=== PATIENT | female | born 1960 | race African-American/Black ===

== ENCOUNTER 2017-05-22 17:11 | Inpatient (IN) | payer MEDICARE ==
[2017-05-22 18:57] LABS: Hemoglobin 7.5 g/dL (12.0-16.0); Mean Corpuscular HGB CONC 29.4 g/dL (32.0-36.0); Mean Corpuscular Hemoglobin 26.8 pg (27.0-31.0); Mean Corpuscular Volume 91.3 fl (81.0-99.0); Mean Platelet Volume 8.6 fL (7.4-10.4); Platelet Count 255 thou/uL (130-400); RBC Distribution Width 16.2 % (11.5-14.5); Red Blood Cell (RBC) Count 2.79 mill/uL (4.20-5.40); White Blood Cell (WBC) Count 9.6 thou/uL (4.8-10.8)
[2017-05-22 19:17] LABS: ALT (SGPT) 14 U/L (8-55); AST (SGOT) 16 U/L (5-34); Albumin 3.5 g/dL (3.5-5.0); Alkaline Phosphatase 86 U/L (40-150); Anion Gap 16 mmol/L (10-20); BUN (Urea Nitrogen) 62 mg/dL (9.8-20.1); Bilirubin, Total 0.5 mg/dL (0.2-1.2); CK (CPK) 151 U/L (29-168); Calc. Creatinine Clearance 0 mL/min (70-130); Calcium 9.3 mg/dL (7.8-10.44); Carbon Dioxide 21 mmol/L (22-29); Chloride 112 mmol/L (98-107); Estimated GFR-MDRD 6; Globulin 3.5 g/dL (2.4-3.5); Glucose 115 mg/dL (70-105); Potassium 4.3 mmol/L (3.5-5.1); Sodium 145 mmol/L (136-145)
[2017-05-22 19:20] LABS: Anisocytosis SLIGHT = 6-15 cells (100X) (0-5/hpf); Eosinophils 6 % (0-10); Hypochromia SLIGHT = 6-15 cells (100X) (0-5/hpf); Lymphocytes 28 % (21-51); MDiff Complete? YES; Monocytes 9 % (0-10); Neutrophil 54 % (42-75); Nucleated RBC 1 % (0); PLT Morphology Comment Appears Adequate; Polychromasia MODERATE = 3-4 cells (100X) (0-2/hpf); Reactive Lymphocytes 2 % (0-10); Target Cells SLIGHT = 2-5 cells (100X) (0-1/hpf)
[2017-05-22 19:22] LABS: CKMB 2.1 ng/mL (0-6.6); Troponin I 0.054 ng/mL (< 0.028)
--- NOTE | 2017-05-22 19:27 | RAD ---
AP VIEW CHEST: INDICATIONS: History of peritoneal dialysis. COMPARISON: Prior exam dated 06/14/2012. FINDINGS: There is stable moderate cardiomegaly. There is moderate pulmonary vascular congestion that has deve loped. The costophrenic angles are excluded. No pneumothorax is evident. No acute osseous abnormal ity is evident. IMPRESSION: 1. Cardiomegaly with pulmonary vascular congestion that may reflect volume overload of congestive he art failure. 2. Some limitations to the exam, as above. POS: NISHANT
[2017-05-22] MEDS ORDERED: HYDROcodone/Acetaminophen 5/325 mg Tablet PO PRN (23:23)
[2017-05-22] MEDS ORDERED: Ondansetron ODT 4 MG TAB PO PRN (23:23)
[2017-05-22] MEDS ORDERED: Acetaminophen 325 MG TAB PO PRN (23:23)
[2017-05-22] MEDS ORDERED: Dextrose 5% in Water 1,000 ML IV PRN (23:23)
[2017-05-22] MEDS ORDERED: Dextrose 50% Abboject 50 ML SYRINGE SLOW IVP PRN (23:23)
[2017-05-22] MEDS ORDERED: hydrALAZINE 25 MG TAB PO SCH (23:30)
[2017-05-22] MEDS ORDERED: cloNIDine 0.2 MG TAB PO SCH (23:30)
[2017-05-22 23:56] LABS: CKMB 2.1 ng/mL (0-6.6); Troponin I 0.055 ng/mL (< 0.028)
--- NOTE | 2017-05-23 02:36 | HP ---
DATE OF ADMISSION: 05/22/2017 TIME OF SERVICE: 2315 hours PRIMARY CARE PHYSICIAN: Pedro Jeffery MD PRIMARY PITCH GATHERER: Dr. Louis covering since Dr. Murcia has not come here. CHIEF COMPLAINT: Need to start dialysis. HISTORY OF PRESENT ILLNESS: Ms. Mazariegos is a 56-year-old obese -[place] female with history of chronic kidney disease, stage 5, currently learning how to start peritoneal dialysis as an outpat ient. She is only undergone treatments or instructions of an hour to hour and a half. She had a peritoneal dialysis catheter placed about a month ago in preparation. She also has a history of CHF, unsure if it is systolic or diastolic; cerebrovascular disease, status post CVA or TIA couple of years ago with resultant memory issues; hypertension; diabetes, and she ju st informed me hepatitis, she is unsure if it is B or C. She states she got of her blood transfusion when she was young. She is followed at [facility] for her chronic kidney disease with Dr. Murcia, and came to the e mergency department today for feeling short of breath. She was told that she was instructed to come to the emergency department by her surface grinder to start peritoneal dialysis. She complains of short ness of breath and diffuse edema and anasarca. No chest pain, no nausea, vomiting or diarrhea, const ipation, no cough or sputum production, no fevers or chills. She denies any GI bleeding above or bel ow. She was seen by Dr. Louis done in the emergency department, he has written a peritoneal dialysis or ders and we are currently waiting for the nurse to bring supplies. On arrival to the floor, she has been hypertensive. Blood pressure has been in the 200+ range. The patient initially told the nurse, she did not know her medications, but was able to tell me her hydra lazine dosing and her clonidine schedule and unsure if she takes 0.1 or 0.2 mg with each dose of clon idine. PAST MEDICAL HISTORY: 1. Chronic kidney disease 5, now end-stage renal disease requiring peritoneal dialysis. 2. Congestive heart failure, suspect diastolic component due to her severe obesity. Also, suspect c or-pulmonale, obstructive sleep apnea/obesity hypoventilation syndrome with pulmonary hypertension. 3. Cerebrovascular disease, status post CVA/TIA. 4. Hypertension. 5. Diabetes mellitus type 2, on Glucophage, unknown dose. 6. Hepatitis B or C. PAST SURGICAL HISTORY: 1. Hysterectomy in the , partial. 2. Bilateral cataracts. States she had been done several times and cannot remember the last one was . 3. Tonsillectomy in 1990. 4. Peritoneal dialysis catheter placement about 1 month ago. HOME MEDICATIONS: 1. Glucophage once a day, unsure of the dose. 2. Hydralazine 100 mg p.o. t.i.d. 3. Clonidine 0.1 mg or 0.2 mg p.o. b.i.d. ALLERGIES: CIPRO causes throat to swell. SOCIAL HISTORY: Negative for habits x3. FAMILY HISTORY: Negative for clotting or bleeding disorder. No immune dysfunction. She has heart d isease, diabetes, high blood pressure, and kidney problems in her family. REVIEW OF SYSTEMS: A 10-point review of systems was performed, negative for all other systems except as stated as per HPI. PHYSICAL EXAMINATION: VITAL SIGNS: Temperature is 97.5, pulse 89, blood pressure 208/74, respiratory rate 22, O2 sat 95% o n room air. GENERAL: She is awake. She is alert. She is oriented x3. She is a middle-aged -[place] fe male who is severely obese. She appears to be in no acute distress. She is sitting up in bed almost 90 degrees and breathing comfortably. HEENT: Normocephalic and atraumatic. Pupils are equal and reactive to light bilaterally. Mucous me mbranes are moist. There are no visible lesions or thrush. NECK: She has about 7 cm of JVD present. LUNGS: Clear to auscultation anteriorly; however, posterior in the bilateral bases, there are some w et crackles present. These do not clear with deep inspiration. She has no wheezes, no rhonchi. No prolonged expiratory phase. CARDIOVASCULAR: She has a normal S1 and S2. Holosystolic murmur best heard at the apex. She has go t normal rate and irregular rhythm. ABDOMEN: Severely obese. Peritoneal dialysis catheter is clean, dry, and intact without any evidenc e of erythema. She had normoactive bowel sounds present in all 4 quadrants. She has no rebound, rig idity, or guarding. There are no peritoneal signs. EXTREMITIES: No cyanosis or clubbing. She has got 2+ edema to about the level of her belly button. SKIN: Otherwise, warm, moist, and well perfused without any other rashes or lesions. MUSCULOSKELETAL: Normal to inspection. She has no inflammation. No palpable joint effusions, thoug h her body habitus makes it difficult. NEUROLOGIC: Cranial nerves II through XII are grossly intact. She has a 5/5 strength in all 4 of hi s extremities. She has a normal speech pattern. No focal deficits. LABORATORY AND DIAGNOSTIC DATA: CMP is fairly normal except for a BUN of 62, creatinine of 8.13. He r calcium is 9.3, potassium 4.3, and bicarbonate 21. Liver functions are completely normal. White b lood cell count was 9.6 with a normal differential, hemoglobin 7.5, hematocrit 25.5 and platelets 255 ,000. Her chest x-ray showed cardiomegaly and pulmonary vascular congestion/CHF. ASSESSMENT AND PLAN: 1. End-stage renal disease requiring dialysis now. Peritoneal dialysis is to start this evening for full treatment. Dr. Louis is following. 2. Acute on chronic congestive heart failure. Unsure if this is systolic or diastolic. Certainly, it is due to fluid overload from her chronic kidney failure. We will get a 2-D echocardiogram to bet ter assess her cardiac function. 3. Severe obesity, likely has sleep apnea and/or obesity hypoventilation syndrome. We will follow u p on the echocardiogram to assess her pulmonary artery pressures. 4. Cerebrovascular disease, status post cerebrovascular accident. We will keep her blood pressure c ontrol. Her will bring her list of medicines in the morning. We will get this restarted. 5. Diabetes mellitus type 2, on Glucophage. Not on insulin. We will hold her Glucophage for now. We will use sliding scale insulin, diabetic diet, and q.i.d. a.c. and at bedtime Accu-Cheks. 6. Hypertension, on hydralazine and clonidine. We will start her back on her regular hydralazine do sing 100 mg p.o. t.i.d., and clonidine. I will aim on the higher side at 0.2 b.i.d. We will give p. r.n. labetalol as needed. 7. Viral hepatitis: Unknown type. We will check hepatitis B surface antigen, surface antibody, cor e antibody and we will also check hepatitis C, total antibody.
[2017-05-23] MEDS: HumaLOG 300 UNITS/3 ML VIAL SC PRN ×3 (05:50→22:17)
[2017-05-23 07:31] LABS: #Basophils 0.1 thou/uL (0.0-0.2); #Eosinphils 0.5 thou/uL (0.0-0.7); #Lymphocytes 2.3 thou/uL (1.20-3.40); #Monocytes 1.1 thou/uL (0.11-0.59); #Neutrophils 4.3 thou/uL (1.40-6.50); %Basophils 0.7 % (0.0-1.0); %Lymphocytes 28.3 % (21.0-51.0); %Monocytes 12.8 % (0.0-10.0); %Neutrophils 52.2 % (42.0-75.0); Hemoglobin 7.2 g/dL (12.0-16.0); Mean Corpuscular HGB CONC 30.2 g/dL (32.0-36.0); Mean Corpuscular Hemoglobin 27.3 pg (27.0-31.0); Mean Corpuscular Volume 90.4 fl (81.0-99.0); Mean Platelet Volume 8.6 fL (7.4-10.4); Platelet Count 220 thou/uL (130-400); RBC Distribution Width 15.9 % (11.5-14.5); Red Blood Cell (RBC) Count 2.64 mill/uL (4.20-5.40); White Blood Cell (WBC) Count 8.2 thou/uL (4.8-10.8)
[2017-05-23 07:48] LABS: Hemoglobin A1c 7.5 % (4.0-6.0)
[2017-05-23 07:53] LABS: Albumin 3.2 g/dL (3.5-5.0); Anion Gap 15 mmol/L (10-20); BUN (Urea Nitrogen) 63 mg/dL (9.8-20.1); BUN/Creatinine Ratio 7.87; Calc. Creatinine Clearance 11 mL/min (70-130); Calcium 9.2 mg/dL (7.8-10.44); Carbon Dioxide 21 mmol/L (22-29); Chloride 114 mmol/L (98-107); Estimated GFR-MDRD 6; Glucose 98 mg/dL (70-105); Phosphorus 5.4 mg/dL (2.3-4.7); Sodium 146 mmol/L (136-145)
[2017-05-23 07:56] LABS: CKMB 1.7 ng/mL (0-6.6); Troponin I 0.054 ng/mL (< 0.028)
[2017-05-23] MEDS: Famotidine 20 MG TAB PO SCH (08:43)
[2017-05-23] MEDS: hydrALAZINE 25 MG TAB PO SCH ×3 (08:43→22:10)
[2017-05-23] MEDS: cloNIDine 0.2 MG TAB PO SCH ×2 (08:44→22:10)
[2017-05-23] MEDS: Docusate 100 MG CAP PO SCH ×2 (10:23→22:10)
[2017-05-23 11:36] LABS: Hep B Core Total Ab Non-Reactive (NonReactive); Hep B Core Total Index 0.08 S/CO (0-0.79)
[2017-05-23 11:37] LABS: HBSAB Concentration 0.16 mIU/mL; HBSAg Index 0.19 S/CO (0-0.99); Hep B Surf AB Non-Reactive (NonReactive); Hep B Surf Ag Non-Reactive S/CO (NonReactive)
--- NOTE | 2017-05-23 12:05 | RAD ---
RADIOGRAPH ABDOMEN 2 VIEWS: DATE: 05/23/17. TIME: 10:27 a.m. HISTORY: A 56-year-old female with generalized abdominal pain. COMPARISON: None. FINDINGS: There is a catheter approaching from the left side of the pelvis, with distal portions coiled in the mid pelvis. There is gas throughout nondilated colon, with a few air fluid levels in the right colon . There is lack of small bowel gas. No evidence of pneumoperitoneum. IMPRESSION: 1. Difficult to evaluate the small intestine because of lack of small bowel gas. 2. Peritoneal dialysis catheter overlying the pelvis. POS: JODY
[2017-05-23 12:19] LABS: Hep C IgG Ab Reflex HepC Qnt (NonReactive); Hep C Index 2.64 S/CO (0-0.79)
--- NOTE | 2017-05-23 14:04 | PDOC.PN ---
- Subjective Encounter Start Date: 05/23/17 Encounter Start Time: 10:20 Subjective: has sob, abd pain colicky+ -: just started on PD now - Objective Resuscitation Status: Resuscitation Status FULL:Full Resuscitation MAR Reviewed: Yes Vital Signs & Weight: Vital Signs (12 hours) Temp Pulse Resp BP BP Pulse Ox 05/23/17 12:53 98.0 F 86 18 136/89 05/23/17 09:23 81 129/59 L 05/23/17 08:44 168/72 H 05/23/17 08:43 76 168/72 H 05/23/17 08:00 98.1 F 81 20 168/72 H 96 05/23/17 03:36 98.0 F 81 18 160/70 H 95 I&O: 05/22/17 05/23/17 05/24/17 06:59 06:59 06:59 Intake Total 580 Balance 580 Result Diagrams: 05/23/17 07:17 05/23/17 07:17 Additional Labs: Accuchecks 05/23/17 05/23/17 12:21 05:42 POC Glucose 135 H 165 H Phys Exam - Physical Examination HEENT: PERRLA, moist MMs Neck: supple jvd+ Respiratory: no wheezing, no rhonchi Cardiovascular: RRR, no significant murmur Gastrointestinal: soft, no distention, positive bowel sounds PD cath+ Musculoskeletal: no edema, pulses present Neurological: non-focal, moves all 4 limbs Psychiatric: A&O x 3 Dx/Plan (1) Volume overload Code(s): E87.70 - FLUID OVERLOAD, UNSPECIFIED Status: Acute (2) ESRD on peritoneal dialysis Code(s): N18.6 - END STAGE RENAL DISEASE; Z99.2 - DEPENDENCE ON RENAL DIALYSIS Status: Acute (3) DM type 2 (diabetes mellitus, type 2) Status: Chronic Qualifiers: Diabetes mellitus complication status: with kidney complications Diabetes mellitus complication detail: with chronic kidney disease Diabetes mellitus bellhop insulin use: without senior care use Chronic kidney disease stage: stage 5, not on chronic dialysis Qualified Code(s): E11.22 - Type 2 diabetes mellitus with diabetic chronic kidney disease; N18.5 - Chronic kidney disease, stage 5; N18.5 - Chronic kidney disease, stage 5; N18.5 - Chronic kidney disease , stage 5; N18.5 - Chronic kidney disease, stage 5 (4) HTN (hypertension) Code(s): I10 - ESSENTIAL (PRIMARY) HYPERTENSION Status: Chronic Qualifiers: Hypertension type: essential hypertension Qualified Code(s): I10 - Essential (primary) hypertension (5) Hepatitis C Code(s): B19.20 - UNSPECIFIED VIRAL HEPATITIS C WITHOUT HEPATIC COMA Status: Chronic Qualifiers: Viral hepatitis chronicity: chronic Hepatic coma status: without hepatic coma Qualified Code(s): B18.2 - Chronic viral hepatitis C (6) H/O: CVA (cerebrovascular accident) Code(s): Z86.73 - PRSNL HX OF TIA (TIA), AND CEREB INFRC W/O RESID DEFICITS Status: Chronic (7) Obesity Code(s): E66.9 - OBESITY, UNSPECIFIED Status: Chronic - Plan if PD is not working, she needs to start on HD -: esrd per nephrology advice -: she seems to have abd pain with PD cath, gets comfortable on sitting up -: is on clonidine and hydralazine -: watch for electrolytes, has met acidosis due to esrd * . Review of Systems - Medications/Allergies Allergies/Adverse Reactions: Allergies Allergy/AdvReac Type Severity Reaction Status Date / Time ciprofloxacin [From Cipro] Allergy Verified 05/22/17 22:21 Medications: Current Medications Acetaminophen (Tylenol) 650 mg PO Q4H PRN PRN Reason: Headache/Fever or Pain Hydrocodone Bitart/Acetaminophen ([place] 10/325) 1 tab PO Q4H PRN PRN Reason: Severe Pain (7-10) Hydrocodone Bitart/Acetaminophen ([place] 5/325) 1 tab PO Q4H PRN PRN Reason: Moderate Pain (4-6) Clonidine (Catapres) 0.2 mg PO BID [facility] Last Admin: 05/23/17 08:44 Dose: 0.2 mg Dextrose/Water (Dextrose 50%) 25 gm SLOW IVP PRN PRN PRN Reason: Hypoglycemia Docusate Sodium (Colace) 100 mg PO BID [facility] Last Admin: 05/23/17 10:23 Dose: Not Given Famotidine (Pepcid) 20 mg PO DAILY [facility] Last Admin: 05/23/17 08:43 Dose: 20 mg Glucagon (Glucagon) 1 mg IM PRN PRN PRN Reason: Hypoglycemia Hydralazine HCl (Apresoline) 100 mg PO TID [facility] Last Admin: 05/23/17 08:43 Dose: 100 mg Dextrose/Water (D5w) 1,000 mls @ 0 mls/hr IV .Q0M PRN; As Directed PRN Reason: Hypoglycemia Insulin Human Lispro (Humalog) 0 units SC .MILD SLIDING SCALE PRN PRN Reason: Mild Correctional Scale Last Admin: 05/23/17 05:50 Dose: 2 unit Ondansetron HCl (Zofran Odt) 4 mg PO Q6H PRN PRN Reason: Nausea/Vomiting
[2017-05-23] MEDS ORDERED: Epoetin (ESRD) 10,000 UNITS/ML VIAL SC SCH (17:00)
[2017-05-23] MEDS ORDERED: Sodium Chloride 0.9% 10 ML ONE ×2 (17:21→22:36)
--- NOTE | 2017-05-23 18:56 | PRG ---
DATE OF SERVICE: 05/23/2017 SUBJECTIVE: Patient was seen and examined at bedside and overnight events noted. Patient denies any shortness of breath or chest pain or palpitation. No history of nausea or vomiting or diarrhea or f ever or chills or cramps. OBJECTIVE: GENERAL: This is a well-built female in no apparent distress. VITAL SIGNS: Temperature 97.8, pulse 85, respiratory rate 20, blood pressure 170/70. HEENT: Atraumatic, normocephalic. Oral mucosa is moist. NECK: Supple. CARDIOVASCULAR: S1, S2 heard. Rate and rhythm regular. RESPIRATORY: Clear to auscultation. GASTROINTESTINAL: Abdomen is soft. MUSCULOSKELETAL: 2+ edema. DERMATOLOGIC: No skin rash. NEUROLOGIC: Alert and awake and oriented x3. No focal neurologic deficits. Moving all the extremiti es. PSYCHIATRIC: Mood and affect normal. LABORATORY DATA: Potassium is 4.0, BUN is 63, creatinine is 8.01, glucose 98. ASSESSMENT AND PLAN: 1. End-stage renal disease, started on peritoneal dialysis. The patient had severe drain. Edema, s lightly from constipation. The patient had repeat dialysis during daytime today after constipation r elieved and feeling better. 2. Hyponatremia. 3. Acidosis. 4. Edema, controlled. 5. Anemia, might need a transfusion. We will type and crossmatch and give 1 unit of blood today. 6. We will continue on Epogen with dialysis as tolerated. Plan is to continue on dialysis as tolerated with ultrafiltration. Transfuse blood today.
[2017-05-24] MEDS: Docusate 100 MG CAP PO SCH ×2 (08:28→21:02)
[2017-05-24] MEDS: hydrALAZINE 25 MG TAB PO SCH ×3 (08:28→21:03)
[2017-05-24] MEDS: Famotidine 20 MG TAB PO SCH (08:28)
[2017-05-24] MEDS: cloNIDine 0.2 MG TAB PO SCH ×2 (08:30→21:03)
[2017-05-24] MEDS: HYDROcodone/Acetaminophen 10/325 mg Tablet PO PRN ×2 (10:40→15:45)
[2017-05-24 10:51] LABS: #Basophils 0.1 thou/uL (0.0-0.2); #Eosinphils 0.5 thou/uL (0.0-0.7); #Lymphocytes 2.6 thou/uL (1.20-3.40); #Monocytes 1.1 thou/uL (0.11-0.59); #Neutrophils 5.3 thou/uL (1.40-6.50); %Basophils 0.7 % (0.0-1.0); %Eosinophils 5.7 % (0.0-10.0); %Lymphocytes 27.1 % (21.0-51.0); %Monocytes 11.1 % (0.0-10.0); %Neutrophils 55.4 % (42.0-75.0); Hemoglobin 8.5 g/dL (12.0-16.0); Mean Corpuscular HGB CONC 30.8 g/dL (32.0-36.0); Mean Corpuscular Volume 90.9 fl (81.0-99.0); Mean Platelet Volume 9.1 fL (7.4-10.4); Platelet Count 230 thou/uL (130-400); RBC Distribution Width 16.2 % (11.5-14.5); Red Blood Cell (RBC) Count 3.05 mill/uL (4.20-5.40); White Blood Cell (WBC) Count 9.5 thou/uL (4.8-10.8)
[2017-05-24 11:04] LABS: Anion Gap 15 mmol/L (10-20); BUN (Urea Nitrogen) 53 mg/dL (9.8-20.1); Calc. Creatinine Clearance 12 mL/min (70-130); Calcium 8.9 mg/dL (7.8-10.44); Carbon Dioxide 20 mmol/L (22-29); Chloride 112 mmol/L (98-107); Estimated GFR-MDRD 7; Glucose 225 mg/dL (70-105); Potassium 4.2 mmol/L (3.5-5.1); Sodium 143 mmol/L (136-145)
[2017-05-24] MEDS: HumaLOG 300 UNITS/3 ML VIAL SC PRN ×3 (11:50→21:08)
--- NOTE | 2017-05-24 12:18 | PDOC.PN ---
- Subjective Encounter Start Date: 05/24/17 Encounter Start Time: 10:30 Subjective: awake, will undergo another session of PD now -: abd pain is positional and is better now -: no sob or chest pain - Objective Resuscitation Status: Resuscitation Status FULL:Full Resuscitation MAR Reviewed: Yes Vital Signs & Weight: Vital Signs (12 hours) Temp Pulse Resp BP BP Pulse Ox 05/24/17 08:30 98.6 F 72 18 180/78 H 96 05/24/17 08:28 72 05/24/17 08:25 98.6 F 72 18 05/24/17 08:19 98.6 F 72 18 180/78 H 96 05/24/17 00:45 98.4 F 82 16 136/62 97 I&O: 05/23/17 05/24/17 05/25/17 06:59 06:59 06:59 Intake Total 580 595 600 Output Total 850 Balance 580 -255 600 Result Diagrams: 05/24/17 10:34 05/24/17 10:34 Additional Labs: Accuchecks 05/24/17 05/24/17 05/23/17 11:20 06:11 22:15 POC Glucose 220 H 142 H 198 H 05/23/17 05/23/17 16:54 12:21 POC Glucose 259 H 135 H Phys Exam - Physical Examination HEENT: PERRLA, moist MMs Neck: no JVD, supple Respiratory: no wheezing, no rales Cardiovascular: RRR, no significant murmur Gastrointestinal: soft, no distention, positive bowel sounds pd cath+ Musculoskeletal: no edema, pulses present Neurological: non-focal, moves all 4 limbs Psychiatric: A&O x 3 Dx/Plan (1) Volume overload Code(s): E87.70 - FLUID OVERLOAD, UNSPECIFIED Status: Acute (2) ESRD on peritoneal dialysis Code(s): N18.6 - END STAGE RENAL DISEASE; Z99.2 - DEPENDENCE ON RENAL DIALYSIS Status: Acute (3) DM type 2 (diabetes mellitus, type 2) Status: Chronic Qualifiers: Diabetes mellitus complication status: with kidney complications Diabetes mellitus complication detail: with chronic kidney disease Diabetes mellitus oysterman insulin use: without senior living use Chronic kidney disease stage: stage 5, not on chronic dialysis Qualified Code(s): E11.22 - Type 2 diabetes mellitus with diabetic chronic kidney disease; N18.5 - Chronic kidney disease, stage 5; N18.5 - Chronic kidney disease, stage 5; N18.5 - Chronic kidney disease , stage 5; N18.5 - Chronic kidney disease, stage 5 (4) HTN (hypertension) Code(s): I10 - ESSENTIAL (PRIMARY) HYPERTENSION Status: Chronic Qualifiers: Hypertension type: essential hypertension Qualified Code(s): I10 - Essential (primary) hypertension (5) Hepatitis C Code(s): B19.20 - UNSPECIFIED VIRAL HEPATITIS C WITHOUT HEPATIC COMA Status: Chronic Qualifiers: Viral hepatitis chronicity: chronic Hepatic coma status: without hepatic coma Qualified Code(s): B18.2 - Chronic viral hepatitis C (6) H/O: CVA (cerebrovascular accident) Code(s): Z86.73 - PRSNL HX OF TIA (TIA), AND CEREB INFRC W/O RESID DEFICITS Status: Chronic (7) Obesity Code(s): E66.9 - OBESITY, UNSPECIFIED Status: Chronic - Plan is tolerating PD with mild abd pain -: dc plan in am if she gets PD done succesfully today -: got 1 unit prbc yesterday -: is on hydralazine and clonidine for htn -: sbp on higher side likely due to anxiety * . Review of Systems - Medications/Allergies Allergies/Adverse Reactions: Allergies Allergy/AdvReac Type Severity Reaction Status Date / Time ciprofloxacin [From Cipro] Allergy Verified 05/22/17 22:21 Medications: Current Medications Acetaminophen (Tylenol) 650 mg PO Q4H PRN PRN Reason: Headache/Fever or Pain Hydrocodone Bitart/Acetaminophen ([place] 10/325) 1 tab PO Q4H PRN PRN Reason: Severe Pain (7-10) Last Admin: 05/24/17 10:40 Dose: 1 tab Hydrocodone Bitart/Acetaminophen ([place] 5/325) 1 tab PO Q4H PRN PRN Reason: Moderate Pain (4-6) Clonidine (Catapres) 0.2 mg PO BID [facility] Last Admin: 05/24/17 08:30 Dose: 0.2 mg Dextrose/Water (Dextrose 50%) 25 gm SLOW IVP PRN PRN PRN Reason: Hypoglycemia Docusate Sodium (Colace) 100 mg PO BID [facility] Last Admin: 05/24/17 08:28 Dose: 100 mg Epoetin Narendra (Procrit) 10,000 units SC Q7D [facility] Last Admin: 05/23/17 17:54 Dose: 10,000 units Famotidine (Pepcid) 20 mg PO DAILY [facility] Last Admin: 05/24/17 08:28 Dose: 20 mg Glucagon (Glucagon) 1 mg IM PRN PRN PRN Reason: Hypoglycemia Hydralazine HCl (Apresoline) 100 mg PO TID [facility] Last Admin: 05/24/17 08:28 Dose: 100 mg Dextrose/Water (D5w) 1,000 mls @ 0 mls/hr IV .Q0M PRN; As Directed PRN Reason: Hypoglycemia Insulin Human Lispro (Humalog) 0 units SC .MILD SLIDING SCALE PRN PRN Reason: Mild Correctional Scale Last Admin: 05/24/17 11:50 Dose: 3 unit Ondansetron HCl (Zofran Odt) 4 mg PO Q6H PRN PRN Reason: Nausea/Vomiting
--- NOTE | 2017-05-24 18:45 | PRG ---
DATE OF SERVICE: 05/24/2017 SUBJECTIVE: Patient was seen and examined at bedside and overnight events noted. Patient denies any shortness of breath or chest pain or palpitation. No history of nausea or vomiting or diarrhea or f ever or chills or cramps. OBJECTIVE: GENERAL: This is an elderly female in no apparent distress. VITAL SIGNS: Temperature 98.4, pulse 79, respiratory rate 20, blood pressure 147/66. HEENT: Atraumatic, normocephalic. Oral mucosa is moist. NECK: Supple. CARDIOVASCULAR: S1, S2 heard. Rate and rhythm regular. RESPIRATORY: Clear to auscultation. GASTROINTESTINAL: Abdomen is soft. MUSCULOSKELETAL: No tenderness. No edema. DERMATOLOGIC: No skin rash. NEUROLOGIC: Alert and awake and oriented x3. No focal neurologic deficits. Moving all the extremiti es. PSYCHIATRIC: Mood and affect normal. LABORATORY DATA: Potassium is 4.2, BUN is 53, and creatinine is 7.6. ASSESSMENT AND PLAN: 1. End-stage renal disease on peritoneal dialysis. Continue on peritoneal dialysis as tolerated. T he patient has been tolerating peritoneal dialysis better. 2. The patient might need tidal volume. We will reduce fill volume. 3. Hyponatremia, limit fluid intake. 4. Acidosis. 5. Edema. 6. Anemia. Continue Epogen. 7. We will continue on peritoneal dialysis as tolerated. We will consult surgeon to evaluate cathet er.
--- NOTE | 2017-05-24 22:18 | CON ---
DATE OF SERVICE: 05/22/2017 CONSULTING PHYSICIAN: Dr. Cooper from [facility]. REASON FOR CONSULTATION: End-stage renal disease evaluation and care. REASON FOR ADMISSION: Shortness of breath and swelling. HISTORY OF PRESENT ILLNESS: This is a 56-year-old -[place] female with history of end-stage renal disease, hypertension, type 2 diabetes, diabetic retinopathy, who came to the hospital with swe lling. Patient is on regular follow up with Dr. Murcia the clin nurse [facility] katia d was started on PD dialysis with training. The patient missed training for a week, started having s welling with mild shortness of breath. She contacted her clin nurse and was told to come to the [facility] since PD is not available at [facility]. Patient currently in mild dis tress and had mild swelling. No fever or chills. No nausea, vomiting, diarrhea reported. Blood pre ssure remains high. PAST MEDICAL HISTORY: Positive for end-stage renal disease, congestive heart failure, CVA, hypertens ion, type 2 diabetes, hepatitis C. PAST SURGICAL HISTORY: Hysterectomy, cataract surgery, tonsillectomy, PD catheter placement. HOME MEDICATIONS: Glucophage, hydralazine, clonidine. ALLERGIES: CIPRO. SOCIAL HISTORY: No smoking, alcohol or illicit drug abuse. FAMILY HISTORY: Positive for diabetes. REVIEW OF SYSTEMS: The following complete review of systems was negative, unless otherwise mentioned in the HPI or below: Constitutional: Weight loss or gain, ability to conduct usual activities. Skin: Rash, itching. Eyes: Double vision, pain. ENT/Mouth: Nose bleeding, neck stiffness, pain, tenderness. Cardiovascular: Palpitations, dyspnea on exertion, orthopnea. Respiratory: Shortness of breath, wheezing, cough, hemoptysis, fever or night sweats. Gastrointestinal: Poor appetite, abdominal pain, heartburn, nausea, vomiting, constipation, or diarr hea. Genitourinary: Urgency, frequency, dysuria, nocturia. Musculoskeletal: Pain, swelling. Neurologic/Psychiatric: Anxiety, depression. Allergy/Immunologic: Skin rash, bleeding tendency. PHYSICAL EXAMINATION: GENERAL: This is a well-built female in no apparent distress. VITAL SIGNS: Temperature 97.6, pulse 82, respiratory 20, blood pressure 176/77. HEENT: Atraumatic, normocephalic. Oral mucosa is moist. Legal blindness present. NECK: Supple, no masses. HEART: S1, S2, rate and rhythm. RESPIRATORY: Clear. ABDOMEN: Soft. MUSCULOSKELETAL: 2-3+ edema. DERMATOLOGIC: No skin rash. NEUROLOGIC: Alert, awake. PSYCHIATRIC: Mood and affect normal. LABORATORY DATA: Potassium is 4.3, bicarbonate is 21, BUN is 62, creatinine is 8.1, hemoglobin was 7 .5. ASSESSMENT AND PLAN: 1. End-stage renal disease. Plan is to start on peritoneal dialysis as tolerated. 2. Anemia. We will have Epogen. 3. Edema, remove fluid with dialysis. 4. Mild hypoalbuminemia. 5. Hypertension. Continue medication, remove fluid with dialysis. 6. Edema, fluid overload. Remove fluid on dialysis as tolerated. Plan is to start on peritoneal dialysis as tolerated. We will follow. I did discuss the case with Jt Murcia her primary clin nurse.
[2017-05-25 06:36] LABS: Anion Gap 15 mmol/L (10-20); BUN (Urea Nitrogen) 49 mg/dL (9.8-20.1); Calc. Creatinine Clearance 12 mL/min (70-130); Calcium 8.8 mg/dL (7.8-10.44); Carbon Dioxide 22 mmol/L (22-29); Chloride 110 mmol/L (98-107); Estimated GFR-MDRD 7; Glucose 160 mg/dL (70-105); Potassium 4.1 mmol/L (3.5-5.1); Sodium 143 mmol/L (136-145)
[2017-05-25 07:21] LABS: #Basophils 0.1 thou/uL (0.0-0.2); #Eosinphils 0.6 thou/uL (0.0-0.7); #Lymphocytes 2.8 thou/uL (1.20-3.40); #Monocytes 1.2 thou/uL (0.11-0.59); %Basophils 0.6 % (0.0-1.0); %Lymphocytes 29.3 % (21.0-51.0); %Monocytes 12.9 % (0.0-10.0); %Neutrophils 51.2 % (42.0-75.0); Hemoglobin 8.3 g/dL (12.0-16.0); Mean Corpuscular HGB CONC 30.1 g/dL (32.0-36.0); Mean Corpuscular Hemoglobin 27.4 pg (27.0-31.0); Mean Corpuscular Volume 91.2 fl (81.0-99.0); Mean Platelet Volume 8.7 fL (7.4-10.4); Platelet Count 222 thou/uL (130-400); RBC Distribution Width 15.9 % (11.5-14.5); Red Blood Cell (RBC) Count 3.01 mill/uL (4.20-5.40); White Blood Cell (WBC) Count 9.6 thou/uL (4.8-10.8)
[2017-05-25 07:28] LABS: Hypochromia MODERATE=16-30 cells (100X) (0-5/hpf); MDiff Complete? YES; PLT Morphology Comment Appears Adequate; Polychromasia MODERATE = 3-4 cells (100X) (0-2/hpf)
--- NOTE | 2017-05-25 08:58 | CON ---
DATE OF CONSULTATION: 05/22/2017 CONSULTING PHYSICIAN: Dr. Perez. REASON FOR CONSULTATION: End-stage renal disease evaluation and care. REASON FOR ADMISSION: Swelling. HISTORY OF PRESENT ILLNESS: A 56-year-old -[place] female with history of type 2 diabetes, c hronic kidney disease, end-stage renal disease, anemia, hypertension, recently started on peritoneal dialysis, came to the hospital with puffiness and swelling. She denies any shortness of breath. No chest pain, palpitation, no fever or chills, no nausea, vomiting. She was on training with PD and sh e could not do it for a week. She denies any abdominal pain. She was sent over here for further roman luation. No skin rash reported. The patient has been tolerating PD well. She has been having one exchange du ring her training with 2.5% solution, had been tolerating well. She is legally blind and her is helping her with the PD training. PAST MEDICAL HISTORY: Positive for type 2 diabetes, diabetic retinopathy, nephropathy, hypertension, hyperlipidemia, legal blindness, cerebrovascular accident, breast abscess. PAST SURGICAL HISTORY: Retinal surgery, hysterectomy, incision and drainage of breast abscess, tonsi llectomy. HOME MEDICATIONS: List is pending. ALLERGIES: CIPROFLOXACIN. FAMILY HISTORY: Positive for diabetes. SOCIAL HISTORY: No smoking, alcohol, or illicit drug abuse. REVIEW OF SYSTEMS: The following complete review of systems was negative, unless otherwise mentioned in the HPI or below: Constitutional: Weight loss or gain, ability to conduct usual activities. Sk in: Rash, itching. Eyes: Double vision, pain. ENT/Mouth: Nose bleeding, neck stiffness, pain, te nderness. Cardiovascular: Palpitations, dyspnea on exertion, orthopnea. Respiratory: Shortness of breath, wheezing, cough, hemoptysis, fever or night sweats. Gastrointestinal: Poor appetite, abdom inal pain, heartburn, nausea, vomiting, constipation, or diarrhea. Genitourinary: Urgency, frequenc y, dysuria, nocturia. Musculoskeletal: Pain, swelling. Neurologic/Psychiatric: Anxiety, depressio n. Allergy/Immunologic: Skin rash, bleeding tendency. PHYSICAL EXAMINATION: GENERAL: This is a well-built female, in no apparent distress. VITAL SIGNS: Temperature 98.6, pulse 78, respiratory rate 18, blood pressure 164/84. HEENT: Atraumatic, normocephalic. Oral mucosa is moist. Legal blindness present. NECK: Supple. CARDIOVASCULAR: S1, S2 heard. Rate and rhythm regular. RESPIRATORY: Clear. GASTROINTESTINAL: Abdomen is soft. MUSCULOSKELETAL: 2-3+ edema. DERMATOLOGIC: No skin rash. NEUROLOGIC: Alert, awake, moving all the extremities. PSYCHIATRIC: Mood and affect normal. LABORATORY DATA: Hemoglobin is 7.5. Potassium is 4.3, BUN 62, creatinine is 8.1. ASSESSMENT AND PLAN: 1. End-stage renal disease, started on peritoneal dialysis. We will have session with 3 exchanges h ere with 2.5% solution and family is agreeable. 2. Edema with fluid overload. We will use green solution with a 2.5% dextrose solution. 3. Hypertension, most likely from fluid overload. Continue on Lasix as tolerated. 4. Acidosis. 5. Anemia. Transfuse if less than 7 and continue Epogen. 6. Mild hypoalbuminemia. 7. Legal blindness. 8. Diabetic nephropathy. Plan is to continue on peritoneal dialysis as tolerated. Plan discussed with Dr. Perez and Dr. Ritchie lopes, her primary electrical prospector. Thank you for the consultation.
[2017-05-25] MEDS: Docusate 100 MG CAP PO SCH (09:14)
[2017-05-25] MEDS: cloNIDine 0.2 MG TAB PO SCH (09:14)
[2017-05-25] MEDS: hydrALAZINE 25 MG TAB PO SCH ×2 (09:14→14:43)
[2017-05-25] MEDS: Famotidine 20 MG TAB PO SCH (09:14)
[2017-05-25] MEDS: HYDROcodone/Acetaminophen 10/325 mg Tablet PO PRN ×2 (09:18→14:43)
--- NOTE | 2017-05-25 12:12 | PDOC.PN ---
- Subjective Encounter Start Date: 05/25/17 Encounter Start Time: 10:45 Subjective: no sob or chest pain -: had PD yesterday, had some abd pain after 3 hrs on it - Objective MAR Reviewed: Yes Vital Signs & Weight: Vital Signs (12 hours) Temp Pulse Resp BP BP Pulse Ox 05/25/17 09:14 72 186/77 H 05/25/17 08:37 97.5 F L 72 17 186/77 H 97 05/25/17 08:10 98.5 F 82 19 97 05/25/17 01:10 98.5 F 82 19 159/71 H I&O: 05/24/17 05/25/17 05/26/17 06:59 06:59 06:59 Intake Total 240 Output Total 200 Balance 40 Result Diagrams: 05/25/17 06:05 05/25/17 06:05 Additional Labs: Accuchecks 05/25/17 05/24/17 05/24/17 06:40 20:47 17:01 POC Glucose 177 H 179 H 194 H Phys Exam - Physical Examination HEENT: PERRLA, moist MMs Neck: no JVD, supple Respiratory: no wheezing, no rales Cardiovascular: RRR, no significant murmur Gastrointestinal: soft, no distention, positive bowel sounds PD cath+ Musculoskeletal: no edema, pulses present Neurological: non-focal, moves all 4 limbs Psychiatric: A&O x 3 Dx/Plan (1) Volume overload Code(s): E87.70 - FLUID OVERLOAD, UNSPECIFIED Status: Acute (2) ESRD on peritoneal dialysis Code(s): N18.6 - END STAGE RENAL DISEASE; Z99.2 - DEPENDENCE ON RENAL DIALYSIS Status: Acute (3) DM type 2 (diabetes mellitus, type 2) Status: Chronic Qualifiers: Diabetes mellitus complication status: with kidney complications Diabetes mellitus complication detail: with chronic kidney disease Diabetes mellitus longterm insulin use: without longterm use Chronic kidney disease stage: stage 5, not on chronic dialysis Qualified Code(s): E11.22 - Type 2 diabetes mellitus with diabetic chronic kidney disease; N18.5 - Chronic kidney disease, stage 5; N18.5 - Chronic kidney disease, stage 5; N18.5 - Chronic kidney disease , stage 5; N18.5 - Chronic kidney disease, stage 5 (4) HTN (hypertension) Code(s): I10 - ESSENTIAL (PRIMARY) HYPERTENSION Status: Chronic Qualifiers: Hypertension type: essential hypertension Qualified Code(s): I10 - Essential (primary) hypertension (5) Hepatitis C Code(s): B19.20 - UNSPECIFIED VIRAL HEPATITIS C WITHOUT HEPATIC COMA Status: Chronic Qualifiers: Viral hepatitis chronicity: chronic Hepatic coma status: without hepatic coma Qualified Code(s): B18.2 - Chronic viral hepatitis C (6) H/O: CVA (cerebrovascular accident) Code(s): Z86.73 - PRSNL HX OF TIA (TIA), AND CEREB INFRC W/O RESID DEFICITS Status: Chronic (7) Obesity Code(s): E66.9 - OBESITY, UNSPECIFIED Status: Chronic - Plan hemostable -: meds faxed to pharmacy -: d/w , may dc after PD today -: has PD education in am -: 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 Review of Systems - Medications/Allergies Allergies/Adverse Reactions: Allergies Allergy/AdvReac Type Severity Reaction Status Date / Time ciprofloxacin [From Cipro] Allergy Verified 05/22/17 22:21 Medications: Current Medications Acetaminophen (Tylenol) 650 mg PO Q4H PRN PRN Reason: Headache/Fever or Pain Hydrocodone Bitart/Acetaminophen ([place] 10/325) 1 tab PO Q4H PRN PRN Reason: Severe Pain (7-10) Last Admin: 05/25/17 09:18 Dose: 1 tab Hydrocodone Bitart/Acetaminophen ([place] 5/325) 1 tab PO Q4H PRN PRN Reason: Moderate Pain (4-6) Clonidine (Catapres) 0.2 mg PO BID [facility] Last Admin: 05/25/17 09:14 Dose: 0.2 mg Dextrose/Water (Dextrose 50%) 25 gm SLOW IVP PRN PRN PRN Reason: Hypoglycemia Docusate Sodium (Colace) 100 mg PO BID [facility] Last Admin: 05/25/17 09:14 Dose: 100 mg Epoetin Narendra (Procrit) 10,000 units SC Q7D [facility] Last Admin: 05/23/17 17:54 Dose: 10,000 units Famotidine (Pepcid) 20 mg PO DAILY [facility] Last Admin: 05/25/17 09:14 Dose: 20 mg Glucagon (Glucagon) 1 mg IM PRN PRN PRN Reason: Hypoglycemia Hydralazine HCl (Apresoline) 100 mg PO TID [facility] Last Admin: 05/25/17 09:14 Dose: 100 mg Dextrose/Water (D5w) 1,000 mls @ 0 mls/hr IV .Q0M PRN; As Directed PRN Reason: Hypoglycemia Insulin Human Lispro (Humalog) 0 units SC .MILD SLIDING SCALE PRN PRN Reason: Mild Correctional Scale Last Admin: 05/24/17 21:08 Dose: 2 unit Ondansetron HCl (Zofran Odt) 4 mg PO Q6H PRN PRN Reason: Nausea/Vomiting
[2017-05-25] MEDS: HumaLOG 300 UNITS/3 ML VIAL SC PRN (12:56)
[2017-05-25 13:44] VITALS: BP 199/87; TEMP 98
[2017-05-25 16:11] LABS: Hep C PCR-Quant HCV Not Detected IU/mL (.)
[2017-05-25] MEDS ORDERED: Sodium Chloride 0.9% 10 ML ONE (17:16)
--- NOTE | 2017-05-25 23:39 | PRG ---
DATE OF SERVICE: 05/25/2017 SUBJECTIVE: Patient was seen and examined at bedside and overnight events noted. Patient denies any shortness of breath or chest pain or palpitation. No history of nausea or vomitin g or diarrhea or fever or chills or cramps. OBJECTIVE: GENERAL: This is an elderly female, in no apparent distress. VITAL SIGNS: Temperature 98.7, pulse 64, respiratory rate 16, blood pressure 186/77. HEENT: Atraumatic, normocephalic. Oral mucosa is moist NECK: Supple. CARDIOVASCULAR: S1 and S2 heard. Rate and rhythm regular. RESPIRATORY: Clear to auscultation. GASTROINTESTINAL: Abdomen is soft. MUSCULOSKELETAL: 1+ edema. DERMATOLOGIC: No skin rash. NEUROLOGIC: Alert and awake and oriented X3, No focal neurologic deficits. Moving all the extremitie s. PSYCHIATRIC: Mood and affect normal. LABORATORY DATA: Potassium 4.1, BUN is 49, creatinine is 7.5. ASSESSMENT AND PLAN: 1. End-stage renal disease, currently on peritoneal dialysis as tolerated. 2. Edema, much better. 3. Cardiorenal syndrome. 4. Hypertension. 5. Anemia. The patient to follow up with Nephrology as outpatient.
--- NOTE | 2017-05-26 12:42 | DIS ---
DATE OF ADMISSION: 05/23/2017 DATE OF DISCHARGE: 05/25/2017 DISCHARGE DISPOSITION: To home. PRIMARY DISCHARGE DIAGNOSIS: Volume overload with end-stage renal disease, initiated on peritoneal d ialysis during her hospital stay here. SECONDARY DISCHARGE DIAGNOSES: Diabetes mellitus type 2, initial hypertension which was uncontrolled has been stable, chronic hepatitis C, history of cerebrovascular accident with no residual defect, o besity. PROCEDURES DONE DURING HOSPITALIZATION: The patient has had abdominal x-ray done, which showed perit louise dialysis catheter overlying the pelvis. Echo with 2D Doppler showed an EF of 60%-65%. There w as LVH, probable diastolic dysfunction. Aortic valve appeared tricuspid. Aortic root dimension was 3.03, AV cusp separation was 1.86 cm on the echo, hemoglobin and hematocrit 8.3 and 27, platelet coun t 222, MCV was 91. Discharge BUN and creatinine is 49 and 7.5 with discharge serum bicarbonate of 22 . Troponin I was indeterminate and peaking up to 0.05, CK-MB 2.1. BNP 326. Admitting BUN and creat inine was 62 and 8.1. Serum bicarbonate 21. Hepatitis C antibody was positive and hepatitis C RNA u ltra-quantitative test did not detect HCV. DISCHARGE MEDICATIONS: Hydralazine 100 mg 3 times daily, ferrous sulfate 325 mg daily, Pepcid 20 mg daily, Colace 100 mg at bedtime, Bentyl 20 mg twice daily p.r.n. for abdominal colic, clonidine 0.2 m g twice daily, aspirin 81 mg daily. ALLERGIES: CIPROFLOXACIN. INPATIENT CONSULT: Dr. Louis for Nephrology. BRIEF COURSE DURING HOSPITALIZATION: The patient initially was admitted for hypertensive urgency wit h volume overload and needing to start peritoneal dialysis catheter. She has had a PD catheter place d and was getting education regarding the same, but had not initiated on the peritoneal dialysis as s [facility]. She has had consultation with Dr. Louis. She was initiated on peritoneal dialysis here. Fir , she did not proceed more than an hour of peritoneal dialysis due to extreme abdominal colic. The second day, she had 3-hour session and had to be terminated due to abdominal pain. The , she has had peritoneal dialysis for a longer duration and has been cleared by Dr. Louis for disc harge. She needs follow up with Dr. Murcia, her presentation specialist at [facility]. She has scheduled class on 4th for her PD catheter training and needs to follow up with that. Her hypertension is maximino rly well controlled. She has been given prescription for Bentyl for her abdominal colic. This is mo stly positional and as patient is new for peritoneal dialysis, she is a bit anxious as well. She is slowly tolerating peritoneal dialysis and needs to continue the same. Please see a face to face docu mentation on [facility] for the day of discharge.
--- NOTE | 2017-05-28 16:03 | EKG ---
Test Reason : Blood Pressure : / mmHG Vent. Rate : 085 BPM Atrial Rate : 085 BPM P-R Int : 180 ms QRS Dur : 086 ms QT Int : 412 ms P-R-T Axes : 056 -12 178 degrees QTc Int : 490 ms Normal sinus rhythm T wave abnormality, consider lateral ischemia Prolonged QT Abnormal ECG Confirmed by MAYRA ENRIQUEZ, KARL Scales ([id number]), image editor YOUSUF MOREL ([id number]) on 05/28/2017 4:03:40 PM Referred By: Confirmed By:KARL NUNEZ MD
== END 2017-05-25 18:10 | disposition home or self-care (01) | DRG 640 ==
LOC: ERS 17:11 → 3SE 21:47 → OBSVTOIN 05-24 13:50
PROVIDERS: ADMIT Internal Medicine; ATTEND Internal Medicine
PROC: 3E1M39Z Irrigation of Peritoneal Cavity using Dialysate, Percutaneous Approach (ICD-10-PCS; principal; 2017-05-23)
PROC: 30233N1 Transfusion of Nonautologous Red Blood Cells into Peripheral Vein, Percutaneous Approach (ICD-10-PCS; 2017-05-23)
DX: E87.79 Other fluid overload (principal); N18.6 End stage renal disease; I13.2 Hypertensive heart and chronic kidney disease with heart failure and with stage 5 chronic kidney disease, or end stage renal disease; E11.22 Type 2 diabetes mellitus with diabetic chronic kidney disease; I27.29 Other secondary pulmonary hypertension; E87.2 Acidosis; E66.2 Morbid (severe) obesity with alveolar hypoventilation; Z99.2 Dependence on renal dialysis; B18.2 Chronic viral hepatitis C; Z86.73 Personal history of transient ischemic attack (TIA), and cerebral infarction without residual deficits; I16.0 Hypertensive urgency; E87.1 Hypo-osmolality and hyponatremia; D64.9 Anemia, unspecified; H54.8 Legal blindness, as defined in USA
CPT/HCPCS: 36415; 36416; 36430; 71010; 74019; 80048; 80053; 80069; 82550; 82553; 83036; 83605; 83880; 84484; 85025; 86704; 86706; 86803; 86850; 86900; 86901; 87340; 87522; 90945; 93005; 93306; 93798; 94760; A4216; G0257; P9016; Q4081

== ENCOUNTER 2018-04-25 20:47 | Inpatient (IN) | payer MEDICARE ==
[2018-04-25 21:19] LABS: #Basophils 0.1 thou/uL (0.0-0.2); #Eosinphils 0.2 thou/uL (0.0-0.7); #Lymphocytes 3.1 thou/uL (1.20-3.40); #Monocytes 0.8 thou/uL (0.11-0.59); #Neutrophils 4.8 thou/uL (1.40-6.50); %Basophils 1.5 % (0.0-1.0); %Eosinophils 2.5 % (0.0-10.0); %Monocytes 9.1 % (0.0-10.0); Hemoglobin 13.8 g/dL (12.0-16.0); Mean Corpuscular HGB CONC 32.1 g/dL (32.0-36.0); Mean Corpuscular Hemoglobin 28.6 pg (27.0-31.0); Mean Platelet Volume 10.3 fL (7.4-10.4); Platelet Count 200 thou/uL (130-400); RBC Distribution Width 17.7 % (11.5-14.5); Red Blood Cell (RBC) Count 4.84 mill/uL (4.20-5.40)
[2018-04-25 21:24] LABS: INR-International Normal Ratio 1.1; PTT 28.6 SEC (22.9-36.1)
[2018-04-25 21:26] LABS: Glucose Accucheck Confirmation 181 mg/dl (70-105)
[2018-04-25 21:34] LABS: ALT (SGPT) 8 U/L (8-55); AST (SGOT) 16 U/L (5-34); Acetaminophen Less than 6.0 mcg/mL (10.0-30.0); Albumin 2.9 g/dL (3.5-5.0); Alcohol Less than 10 mg/dL (Less than 10); Alkaline Phosphatase 104 U/L (40-150); Anion Gap 11 mmol/L (10-20); BUN (Urea Nitrogen) 25 mg/dL (9.8-20.1); Bilirubin, Total 0.2 mg/dL (0.2-1.2); Calc. Creatinine Clearance 0 mL/min (70-130); Calcium 9.5 mg/dL (7.8-10.44); Carbon Dioxide 29 mmol/L (22-29); Chloride 101 mmol/L (98-107); Estimated GFR-MDRD 9; Globulin 4.2 g/dL (2.4-3.5); Glucose 182 mg/dL (70-105); Protein, Total 7.1 g/dL (6.0-8.3); Salicylate Less than 8.0 mg/dL (15.0-30.0); Sodium 139 mmol/L (136-145)
[2018-04-25 21:42] LABS: Potassium 2.3 mmol/L (3.5-5.1)
[2018-04-25 21:56] LABS: CKMB 1.9 ng/mL (0-6.6)
--- NOTE | 2018-04-25 22:03 | RAD ---
PORTABLE SUPINE CHEST: 04/25/18 HISTORY: Stroke alert. COMPARISON: 05/22/17 study. Heart size is enlarged. Pulmonary vessels appear mildly prominent but this is felt to be related to s upine technique. There is elevation of the right hemidiaphragm. No focal infiltrates. IMPRESSION: Cardiomegaly. POS: [facility]
--- NOTE | 2018-04-25 22:11 | CT ---
CT OF BRAIN PERFORMED WITHOUT CONTRAST ENHANCEMENT: 04/25/18 HISTORY: Stroke alert. Patient found unresponsive with unequal pupils. The ventricular and cisternal system is within normal limits. An old right sided thalamic lacunar typ e infarct is seen. It is stable as compared to a 06/17/12 exam. No signs of intracerebral hemorrhage o r extra-axial fluid collections. Mastoid air cells are clear. IMPRESSION: 1. No acute intracranial abnormalities. 2. These findings were telephoned to Dr Engel at 2057 hours. POS: [facility]
[2018-04-25] MEDS ORDERED: Potassium Chloride 10 MEQ in Premix Bag 1 BAG IVPB SCH (22:15)
[2018-04-26 01:22] VITALS: BMI 31.9
[2018-04-26 01:43] LABS: Troponin I 0.054 ng/mL (< 0.028)
[2018-04-26] MEDS ORDERED: Dextrose 5% in Water 1,000 ML IV PRN ×2 (02:29→13:48)
[2018-04-26] MEDS ORDERED: Acetaminophen 325 MG TAB PO PRN (02:29)
[2018-04-26] MEDS ORDERED: Ondansetron PF 4 MG/2 ML Vial IVP PRN (02:29)
[2018-04-26] MEDS ORDERED: Dextrose 50% Abboject 50 ML SYRINGE SLOW IVP PRN (02:29)
[2018-04-26 02:31] LABS: CKMB 2.1 ng/mL (0-6.6)
[2018-04-26] MEDS ORDERED: cloNIDine 0.2 MG TAB PO SCH (03:15)
[2018-04-26 03:22] LABS: Band 2 % (5-11); Hemoglobin 14.6 g/dL (12.0-16.0); Lymphocytes 30 % (21-51); MDiff Complete? YES; Mean Corpuscular HGB CONC 30.6 g/dL (32.0-36.0); Mean Corpuscular Hemoglobin 27.2 pg (27.0-31.0); Mean Corpuscular Volume 88.8 fL (78.0-98.0); Mean Platelet Volume 10.7 fL (7.4-10.4); Monocytes 5 % (0-10); Neutrophil 63 % (42-75); PLT Morphology Comment Appears Adequate; Platelet Count 151 thou/uL (130-400); RBC Distribution Width 18.1 % (11.5-14.5); Red Blood Cell (RBC) Count 5.37 mill/uL (4.20-5.40); White Blood Cell (WBC) Count 12.3 thou/uL (4.8-10.8)
[2018-04-26 03:33] LABS: Troponin I 0.053 ng/mL (< 0.028)
[2018-04-26 03:45] LABS: Anion Gap 17 mmol/L (10-20); BUN (Urea Nitrogen) 28 mg/dL (9.8-20.1); Calc. Creatinine Clearance 12 mL/min (70-130); Calcium 9.5 mg/dL (7.8-10.44); Carbon Dioxide 28 mmol/L (22-29); Chloride 102 mmol/L (98-107); Estimated GFR-MDRD 9; Glucose 207 mg/dL (70-105); Sodium 144 mmol/L (136-145)
[2018-04-26 03:48] LABS: Potassium 2.8 mmol/L (3.5-5.1)
[2018-04-26] MEDS ORDERED: Potassium Chloride 20 MEQ TAB PO SCH (04:15)
[2018-04-26] MEDS: Heparin 5,000 UNITS/ML VIAL SC SCH ×3 (09:31→22:33)
[2018-04-26] MEDS: hydrALAZINE 25 MG TAB PO SCH ×3 (09:35→22:34)
[2018-04-26] MEDS: Ferrous Sulfate 325 MG TAB PO SCH (09:36)
[2018-04-26] MEDS: cloNIDine 0.2 MG TAB PO SCH ×2 (09:37→22:34)
[2018-04-26] MEDS: Dicyclomine 20 MG TAB PO SCH ×2 (09:37→22:34)
[2018-04-26] MEDS: Famotidine 20 MG TAB PO SCH (09:37)
[2018-04-26 10:04] LABS: Anion Gap 14 mmol/L (10-20); BUN (Urea Nitrogen) 28 mg/dL (9.8-20.1); Calc. Creatinine Clearance 13 mL/min (70-130); Calcium 9.7 mg/dL (7.8-10.44); Carbon Dioxide 29 mmol/L (22-29); Chloride 102 mmol/L (98-107); Estimated GFR-MDRD 9; Glucose 181 mg/dL (70-105); Sodium 142 mmol/L (136-145)
--- NOTE | 2018-04-26 10:38 | HP ---
PRIMARY CARE PHYSICIAN: The patient goes to [facility]. TIME OF EVALUATION: 2 a.m. CODE STATUS: Full code. CHIEF COMPLAINT: Change in mental status. HISTORY OF PRESENT ILLNESS: This is a 57-year-old female patient with past medical history of multiple comorbidities including congestive heart failure, diabetes, previous stroke, peritoneal dialysis, end-stage renal disease. The patient came to the hospital after having a severe change in mental status. The patient was confused, unresponsive, and her symptoms started around 6 p.m., with no clear triggers, no alleviating factors. The patient has not been eating properly and has been started on 70/30 insulin. After the paramedics got to the scene seen, she was found to be hypoglycemic, the patient has recovered after ____. By the time I examined the patient, the patient seems to be back to normal forgetful. Symptoms are severe. REVIEW OF SYSTEMS: CONSTITUTIONAL: No fever, chills, or generalized weakness. RESPIRATORY: No cough, sputum production, or shortness of breath. CARDIOVASCULAR: No chest pain. No palpitation. GASTROINTESTINAL: No nausea, vomiting, diarrhea, or abdominal pain. HOME CARE SCHEDULER: The patient had change in mental status and forgetfulness. GENITOURINARY: No burning on urination. EXTREMITIES: No leg swelling. All other systems were reviewed and negative except for the findings as mentioned above. PAST MEDICAL HISTORY: Positive for end-stage renal disease, on peritoneal dialysis 2x daily, congestive heart failure; stroke in the past; and hypertension. PAST SURGICAL HISTORY: Hysterectomy. PSYCHIATRIC HISTORY: No previous psych history. SOCIAL HISTORY: No alcohol, no drugs, no smoking history. ALLERGIES: CIPRO. MEDICATIONS: Reported medications have been unable to obtain at this point, family will bring the medication list in the morning. PHYSICAL EXAMINATION: VITAL SIGNS: On presentation, blood pressure 229/95, with a heart rate of 84, respiratory rate of 14, and oxygen saturation 99% on room air. GENERAL APPEARANCE: The patient is alert, oriented, not in acute distress. HEENT: Eyes, normal conjunctivae. Moist oral mucosa. Anicteric. No JVD. RESPIRATORY: Bilateral air entry. No rales. No wheezing. Symmetric expansion. CARDIOVASCULAR: Normal rate, regular rhythm. No murmurs, no gallops, no edema. ABDOMEN: Soft. Normal bowel sounds. MUSCULOSKELETAL: Baseline range of motion and strength. No tenderness. SKIN: Warm and intact. No palor, no rash. Patient has warming blanket. EXTREMITIES: Peripheral pulses are present. Capillary refill seems to be intact. NEUROLOGIC: No evidence of any new focal weakness. Patient has underlying change in sensitivity that is chronic, likely due to diabetes. PSYCHIATRIC: The patient is in good mood. No anxiety. Optimal judgment. DIAGNOSTIC STUDIES: EKG was reviewed. The patient has normal sinus rhythm at a rate of 56, SD 182, QRS 102, QT corrected 538, moderate voltage for LVH. Nonspecific T-wave abnormalities with QT prolongation. Brain CT was done, the patient has no acute intracranial abnormalities. Chest x-ray was done. The patient has cardiomegaly, otherwise negative exam. Labs were reviewed, the patient has white count of 9, went up to 12.3; hemoglobin 13; platelet 200; and MCV 89. Sodium 139; potassium 2.3, went up to 2.8; chloride 101, carbon dioxide was 29, anion gap of 11, BUN 25, creatinine 5.77, glucose 182, lactic acid 1.3, calcium 9.5. Troponin 0.070, second one 0.053. Albumin 2.9, globulin 4.2, TSH 1. Salicylate, acetaminophen, and plasma alcohol all were negative. ASSESSMENT AND PLAN: The patient presented to the hospital with the following medical problems; 1. Acute hypoglycemia. The patient was not eating properly and has full dose of insulin treatment at home and she also reported taking . We will put her on hypoglycemia protocol. We also watch for any underlying infection or any other disease that might be causing secondary hypoglycemia. 2. Hypokalemia, this is moderate. Potassium was 2.3, increased to 2.8 after replacing potassium, the patient going for peritoneal dialysis as reported by ER. This was discussed with Alessandra. 3. Peritoneal dialysis in a patient with end-stage renal disease. Dr. Aparicio has been consulted. We will follow recommendations. 4. Elevated troponins, 0.070, next one 0.053, this could be related to underlying chronic kidney disease. 5. Chronic kidney disease, stage 5, on peritoneal dialysis, Dr. Aparicio is following this problem. We will follow recommendations. 6. Uncontrolled diabetes, presumably with hypoglycemia, likely due to noncompliance with diet. This has been discussed with the patient. Reconcile home medications. Adjust treatment as needed. 7. Leukocytosis of 12.3, no evidence of infection, we will monitor hypoglycemia in a diabetic patient. 8. Deep venous thrombosis prophylaxis. Job ID: [id number]
--- NOTE | 2018-04-26 11:25 | PDOC.EVN ---
Event Note - Event Note Event Note: Chart reviewed. Patient seen. No complaints, will follow.
--- NOTE | 2018-04-26 12:45 | CON ---
DATE OF CONSULTATION: HISTORY OF PRESENT ILLNESS: Ms. Mazariegos is a 57-year-old black female with ESRD from diabetic nephropathy, currently on CCPD regimen and was admitted due to mental status change. This was secondary to hypoglycemia. CT scan of the brain was said to be negative. Chest x-ray was also negative. This morning, she is feeling better. We were consulted for her maintenance peritoneal dialysis. Please note, her regular director integrated, Dr. Murcia, is on supervising her. REVIEW OF SYSTEMS: No chest pain. No shortness of breath. Positive for confusion. No nausea. No vomiting. No fever or chills. Appetite fair. Energy level is fair. MEDICATIONS: 1. Aspirin 81 mg daily. 2. Catapres 0.1 mg q.4 p.r.n. 3. Catapres 0.2 mg p.o. b.i.d. 4. Bentyl 20 mg p.o. b.i.d. 5. Pepcid 20 mg . 6. Heparin 5000 units subcu t.i.d. 7. Zofran 4 mg IV q.6 p.r.n. PAST MEDICAL HISTORY: 1. ESRD from diabetic nephropathy. 2. Type 2 diabetes mellitus. 3. Status post CHF. 4. Hypertension. 5. Chronic hepatitis ? C. 6. Status post CVA. PAST SURGICAL HISTORY: Status post bilateral cataract surgery, status post PD catheter placement, status post hysterectomy, and status post tonsillectomy. SOCIAL HISTORY: The patient is , 3 natural children and 5 stepchildren. She lives in [place]. 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 Currently, no smoking. No alcohol. No IV drug abuse. Status post blood transfusion. Education, GED. FAMILY HISTORY: Positive family history of ESRD. ALLERGIES: CIPRO. TRAUMA: None. IMMUNIZATION: Up-to-date. HOSPITALIZATIONS: Please see past medical history. PHYSICAL EXAMINATION: VITAL SIGNS: Blood pressure is 147/87, heart rate 77, respiratory rate 18, temperature 98.3, and pulse ox 98%. GENERAL: Noted to be awake, alert, supine, and comfortable, not in distress. SKIN: Adequate turgor. HEENT: She has a pinkish conjunctivae. Anicteric sclerae. NECK: No neck mass. No carotid bruits. No JVD. CHEST: No deformities. LUNGS: Clear breath sounds. HEART: Normal sinus rhythm. No murmur. No gallops. No rubs. ABDOMEN: Globular, soft, and nontender. Positive for PD catheter. EXTREMITIES: No edema. No deformities. LABORATORY DATA: Laboratories of April 26, 2018, white count 12.3 and hemoglobin 14.6. Sodium 144, potassium is 2.8, carbon dioxide 28, chloride 102, BUN 28, creatinine 5.91, and calcium 9.5. ASSESSMENT AND PLAN: 1. End-stage renal disease, stable. We will continue current continuous cycling peritoneal dialysis regimen. She gets dialyzed 10 hours using a 2.5 L fill volume using 1.5 alternating with 2.5% solution. 2. Hypokalemia, p.r.n. potassium correction. We will recheck another potassium with this patient. 3. Type 2 diabetes mellitus-holding current insulin. Recently, she was started on a new insulin regimen, insulin 70/30, and this resulted in her being hypoglycemic. 4. Hypoglycemia, resolved. The patient is eating better and mentating well. Overall, agree with current management. Job ID: [id number]
[2018-04-26] MEDS ORDERED: Dextrose 50% Abboject 50 ML SYRINGE IVP PRN (13:48)
[2018-04-26] MEDS: HumaLOG 300 UNITS/3 ML VIAL SC PRN ×3 (16:02→21:31)
--- NOTE | 2018-04-26 17:39 | CON ---
DATE OF CONSULTATION: NEPHROLOGY CONSULT REASON FOR CONSULTATION: End-stage renal disease. HISTORY OF PRESENT ILLNESS: This is a very pleasant 57-year-old female, who presented to the hospital with altered mental status. The patient denies any nausea, vomiting, chest pain, headache, numbness, tingling, or weakness. The patient is on peritoneal dialysis on Tuesday, Tuesday, and Tuesday. PAST MEDICAL HISTORY: 1. Hypertension. 2. Hepatitis C. 3. Congestive heart failure. 4. CVA. PAST SURGICAL HISTORY: 1. Hysterectomy. 2. [QAMARKER]. 3. Tonsillectomy. 4. PD catheter placement. MEDICATIONS: Home medications: Reviewed. Hospital medications: Reviewed. ALLERGIES: REVIEWED. REVIEW OF SYSTEMS: A 15-point review of system was performed and negative except for positives noted above. NECK: No swelling or lumps. NOSE: No epistaxis or discharge. EYES: No diplopia or pain. MUSCULOSKELETAL: No joint pain. NEUROPSYCHIATRIC SYSTEMS: No suicidal ideation. No ideation. SKIN: Denies any rash or ulcer. CONSTITUTIONAL: No fever or chills. PHYSICAL EXAMINATION: GENERAL: The patient is awake and alert. VITAL SIGNS: Afebrile, pulse 87, breathing is 16, and blood pressure 147/87. GENERAL APPEARANCE AND MENTAL STATUS: Fair. HEAD/NECK: Normocephalic. Atraumatic. EYES: EOMI. No deformity. EARS: Clear. No ulcers. NOSE: Intact. No lesions. MOUTH: Clear. No discharge. THROAT: Clear. No exudate. LUNGS: Clear. No crackles. CARDIAC: S1, S2. No rub. ABDOMEN: Benign. Bowel sounds positive. GENITALIA/RECTUM: Verma absent. BACK/EXTREMITIES: Edema 0+. NEUROLOGICAL: Alert and motor intact. LABORATORY DATA: Potassium is 3. ASSESSMENT AND PLAN: 1. Stage 6 chronic kidney disease. Continue peritoneal dialysis. 2. Hypokalemia. Recommend 40 mEq of potassium. We will recheck potassium. 3. Hypertension, stable. 4. Anemia, stable. 5. Medications based on glomerular filtration rate are appropriate. Job ID: [id number] [id number]
[2018-04-26] MEDS: cloNIDine 0.1 MG TAB PO PRN (18:01)
[2018-04-26] MEDS: Docusate 100 MG CAP PO SCH (22:34)
[2018-04-27] MEDS ORDERED: Potassium Chloride 10 MEQ in Premix Bag 1 BAG IVPB SCH (01:00)
[2018-04-27] MEDS: HumaLOG 300 UNITS/3 ML VIAL SC PRN ×4 (04:36→18:24)
[2018-04-27] MEDS: cloNIDine 0.1 MG TAB PO PRN (04:36)
[2018-04-27 06:41] LABS: Anion Gap 11 mmol/L (10-20); BUN (Urea Nitrogen) 24 mg/dL (9.8-20.1); Calc. Creatinine Clearance 13 mL/min (70-130); Calcium 8.8 mg/dL (7.8-10.44); Carbon Dioxide 30 mmol/L (22-29); Chloride 100 mmol/L (98-107); Estimated GFR-MDRD 10; Glucose 324 mg/dL (70-105); Sodium 138 mmol/L (136-145)
[2018-04-27 06:50] LABS: Potassium 2.5 mmol/L (3.5-5.1)
[2018-04-27] MEDS ORDERED: Potassium Chloride 20 MEQ TAB PO SCH (09:45)
--- NOTE | 2018-04-27 09:56 | PDOC.PN ---
- Subjective Encounter Start Date: 04/27/18 Encounter Start Time: 07:00 Pt seen for followup re: hypokalemia. Denies chest pain, shortness of breath, fevers or chills. No nausea or vomiting. - Objective Resuscitation Status - Order Detail: 04/26/18 02:29 Resuscitation Status Routine Resuscitation Status: FULL: Full Resuscitation MAR Reviewed: Yes Vital Signs & Weight: Vital Signs (12 hours) Temp Pulse Resp BP Pulse Ox 04/27/18 08:00 98.5 F 64 16 154/78 H 96 04/27/18 06:37 152/81 H 04/27/18 04:00 98.6 F 67 18 198/80 H 98 04/27/18 00:00 97.8 F 69 19 178/86 H 100 04/26/18 22:40 207/93 H Weight Weight 163 lb 8 oz Result Diagrams: 04/26/18 02:58 04/27/18 05:59 Additional Labs: Accuchecks 04/27/18 04/27/18 04/27/18 07:32 04:03 00:54 POC Glucose 283 H 295 H 202 H 04/26/18 04/26/18 04/26/18 20:13 16:37 11:09 POC Glucose 350 H 422 H 244 H EKG Reviewed by me: Yes (Tele: NSR) Phys Exam - Physical Examination Obese HEENT: moist MMs Neck: supple Respiratory: clear to auscultation bilateral Cardiovascular: RRR Gastrointestinal: soft Neurological: moves all 4 limbs Psychiatric: normal affect Dx/Plan (1) Hypokalemia Code(s): E87.6 - HYPOKALEMIA Status: Acute Comment: replace potassium, recheck (2) ESRD on peritoneal dialysis Code(s): N18.6 - END STAGE RENAL DISEASE; Z99.2 - DEPENDENCE ON RENAL DIALYSIS Status: Chronic Comment: nephrology following (3) DM type 2 (diabetes mellitus, type 2) Status: Chronic Qualifiers: Diabetes mellitus complication detail: with unspecified neuropathy Comment: resume glipizide, continue accuchecks and insulin sliding scale (4) H/O: CVA (cerebrovascular accident) Code(s): Z86.73 - PRSNL HX OF TIA (TIA), AND CEREB INFRC W/O RESID DEFICITS Status: Chronic Comment: stable (5) HTN (hypertension) Code(s): I10 - ESSENTIAL (PRIMARY) HYPERTENSION Status: Chronic Qualifiers: Comment: resume home medications, monitor vital signs and titrate antihypertensives as needed (6) Hypoglycemia Code(s): E16.2 - HYPOGLYCEMIA, UNSPECIFIED Status: Resolved - Plan * . Review of Systems - Review of Systems Respiratory: negative: Cough, Shortness of Breath, SOB with Excertion, Pleuritic Pain, Wheezing Cardiovascular: negative: chest pain, palpitations, orthopnea, paroxysmal nocturnal dyspnea, edema, light headedness - Medications/Allergies Allergies/Adverse Reactions: Allergies Allergy/AdvReac Type Severity Reaction Status Date / Time ciprofloxacin [From Cipro] Allergy Verified 05/22/17 22:21 levofloxacin [From Levaquin] Allergy Verified 04/26/18 17:16 manuel Allergy Verified 04/26/18 01:55 Medications: Current Medications Acetaminophen (Tylenol) 650 mg PO Q4H PRN PRN Reason: Headache/Fever/Mild Pain (1-3) Amlodipine Besylate (Norvasc) 10 mg PO DAILY [facility] Aspirin (Aspirin Chewable) 81 mg PO DAILY [facility] Last Admin: 04/26/18 09:35 Dose: 81 mg Calcium Acetate (Phoslo) mg PO TID [facility] Clonidine (Catapres) 0.2 mg PO BID [facility] Last Admin: 04/26/18 22:34 Dose: 0.2 mg Clonidine (Catapres) 0.1 mg PO Q4H PRN PRN Reason: SBP > 180 Last Admin: 04/27/18 04:36 Dose: 0.1 mg Clonidine (Catapres) 0.3 mg PO BID [facility] Dextrose/Water (Dextrose 50%) 25 gm IVP PRN PRN PRN Reason: HYPOGLYCEMIA PROTOCOL Dicyclomine HCl (Bentyl) 20 mg PO BID [facility] Last Admin: 04/26/18 22:34 Dose: 20 mg Docusate Sodium (Colace) 100 mg PO HS [facility] Last Admin: 04/26/18 22:34 Dose: 100 mg Famotidine (Pepcid) 20 mg PO DAILY [facility] Last Admin: 04/26/18 09:37 Dose: 20 mg Ferrous Sulfate (Feosol) 325 mg PO DAILY [facility] Last Admin: 04/26/18 09:36 Dose: 325 mg Glipizide (Glucotrol) 10 mg PO BID [facility] Glucagon (Glucagon) 1 mg IM PRN PRN PRN Reason: HYPOGLYCEMIA PROTOCOL Heparin Sodium (Porcine) (Heparin) 5,000 units SC TID [facility] Last Admin: 04/26/18 22:33 Dose: 5,000 units Hydralazine HCl (Apresoline) 100 mg PO TID [facility] Last Admin: 04/26/18 22:34 Dose: 100 mg Dextrose/Water (D5w) 1,000 mls @ 0 mls/hr IV INF PRN PRN Reason: HYPOGLYCEMIA PROTOCOL Potassium Chloride 20 meq/ (Device) 200 mls @ 100 mls/hr IVPB NOW [facility] Insulin Human Lispro (Humalog) 0 units SC .MILD SLIDING SCALE PRN; Protocol PRN Reason: MILD SLIDING SCALE Last Admin: 04/27/18 04:36 Dose: 4 unit Non-Formulary Medication (Carvedilol [Carvedilol]) 12.5 mg PO HS [facility] Non-Formulary Medication (Carvedilol [Carvedilol]) 25 mg PO QAM [facility] Non-Formulary Medication (Cholecalciferol (Vitamin D3) [Vitamin D3]) 2,000 unit PO DAILY [facility] Ondansetron HCl (Zofran) 4 mg IVP Q6H PRN PRN Reason: Nausea/Vomiting Potassium Chloride (K-Dur) 40 meq PO Q4H [facility] Stop: 04/27/18 13:46 Sodium Chloride (Flush - Normal Saline) 10 ml IVF Q12HR [facility] Last Admin: 04/26/18 22:35 Dose: 10 ml Sodium Chloride (Flush - Normal Saline) 10 ml IVF PRN PRN PRN Reason: Saline Flush Vitamin B Complex/Vit C/Folic Acid (Nephro-Jose Tablet) 1 tab PO DAILY [facility]
[2018-04-27] MEDS: Heparin 5,000 UNITS/ML VIAL SC SCH ×3 (10:25→22:03)
[2018-04-27] MEDS: cloNIDine 0.2 MG TAB PO SCH (10:27)
[2018-04-27] MEDS: Ferrous Sulfate 325 MG TAB PO SCH (10:28)
[2018-04-27] MEDS: hydrALAZINE 25 MG TAB PO SCH ×3 (10:28→22:03)
[2018-04-27] MEDS: Dicyclomine 20 MG TAB PO SCH ×2 (10:28→22:03)
[2018-04-27] MEDS: Famotidine 20 MG TAB PO SCH (10:28)
[2018-04-27 10:43] LABS: Anion Gap 13 mmol/L (10-20); BUN (Urea Nitrogen) 22 mg/dL (9.8-20.1); Calc. Creatinine Clearance 14 mL/min (70-130); Calcium 8.8 mg/dL (7.8-10.44); Carbon Dioxide 29 mmol/L (22-29); Chloride 99 mmol/L (98-107); Estimated GFR-MDRD 10; Glucose 388 mg/dL (70-105); Magnesium 2.1 mg/dL (1.6-2.6); Sodium 138 mmol/L (136-145)
[2018-04-27 10:47] LABS: Potassium 2.5 mmol/L (3.5-5.1)
--- NOTE | 2018-04-27 12:12 | PRG ---
DATE OF SERVICE: 04/27/2018 SUBJECTIVE: This is a 57-year-old female, being seen for end-stage renal disease. The patient denies nausea, vomiting, or chest pain. OBJECTIVE: Awake, alert, in no acute distress. VITAL SIGNS: Afebrile, pulse 64, breathing 16, blood pressure 154/78. GENERAL APPEARANCE AND MENTAL STATUS: Fair. HEAD/NECK: Normocephalic. Atraumatic. EYES: EOMI. No deformity. EARS: Clear. No ulcers. NOSE: Intact. No lesions. MOUTH: Clear. No discharge. THROAT: Clear. No exudate. LUNGS: Clear. No crackles. CARDIAC: S1, S2. No rub. ABDOMEN: Benign. Bowel sounds positive. GENITALIA/RECTUM: Verma absent. BACK/EXTREMITIES: Edema 0+. NEUROLOGICAL: Alert and motor intact. SKIN: LYMPHATICS: LABORATORY DATA: Labs show potassium 2.5, creatinine 5.4. ASSESSMENT AND PLAN: 1. Stage 3 chronic kidney disease. Continue peritoneal dialysis. 2. Hypokalemia. We will give 40 mEq of potassium and check magnesium. 3. Anemia, stable. 4. Medications based on glomerular filtration rate are appropriate. Job ID: [id number]
[2018-04-27] MEDS ORDERED: Carvedilol 25 MG TAB PO SCH (12:30)
[2018-04-27] MEDS ORDERED: Amlodipine 10 MG TAB PO SCH (12:30)
[2018-04-27] MEDS: Calcium Acetate 667 MG CAP PO SCH ×2 (15:53→22:02)
[2018-04-27 17:06] LABS: Anion Gap 12 mmol/L (10-20); BUN (Urea Nitrogen) 21 mg/dL (9.8-20.1); Calc. Creatinine Clearance 13 mL/min (70-130); Calcium 8.6 mg/dL (7.8-10.44); Carbon Dioxide 27 mmol/L (22-29); Chloride 102 mmol/L (98-107); Estimated GFR-MDRD 10; Glucose 305 mg/dL (70-105); Sodium 137 mmol/L (136-145)
[2018-04-27] MEDS ORDERED: Carvedilol 6.25 MG TAB PO SCH (21:00)
[2018-04-27] MEDS: cloNIDine 0.3 MG TAB PO SCH (22:02)
[2018-04-27] MEDS: Docusate 100 MG CAP PO SCH (22:03)
[2018-04-27] MEDS: glipiZIDE 10 MG TAB PO SCH (22:03)
[2018-04-28 05:30] LABS: Anion Gap 15 mmol/L (10-20); BUN (Urea Nitrogen) 23 mg/dL (9.8-20.1); Calc. Creatinine Clearance 13 mL/min (70-130); Calcium 8.7 mg/dL (7.8-10.44); Carbon Dioxide 24 mmol/L (22-29); Chloride 100 mmol/L (98-107); Estimated GFR-MDRD 9; Glucose 405 mg/dL (70-105); Potassium 3.5 mmol/L (3.5-5.1); Sodium 135 mmol/L (136-145)
[2018-04-28 05:53] LABS: #Basophils 0.1 thou/uL (0.0-0.2); #Eosinphils 0.3 thou/uL (0.0-0.7); #Lymphocytes 3.7 thou/uL (1.20-3.40); #Monocytes 0.8 thou/uL (0.11-0.59); #Neutrophils 3.8 thou/uL (1.40-6.50); %Basophils 0.7 % (0.0-1.0); %Eosinophils 3.6 % (0.0-10.0); %Lymphocytes 43.1 % (21.0-51.0); %Monocytes 9.1 % (0.0-10.0); %Neutrophils 43.5 % (42.0-75.0); Anisocytosis SLIGHT = 6-15 cells (100X) (0-5/hpf); Hemoglobin 12.5 g/dL (12.0-16.0); Hypochromia SLIGHT = 6-15 cells (100X) (0-5/hpf); MDiff Complete? YES; Mean Corpuscular HGB CONC 30.9 g/dL (32.0-36.0); Mean Corpuscular Hemoglobin 28.1 pg (27.0-31.0); Mean Platelet Volume 10.9 fL (7.4-10.4); PLT Morphology Comment Appears Adequate; Platelet Count 175 thou/uL (130-400); Polychromasia SLIGHT = 2-3 cells (100X) (0-2/hpf); RBC Distribution Width 18.6 % (11.5-14.5); Red Blood Cell (RBC) Count 4.46 mill/uL (4.20-5.40); White Blood Cell (WBC) Count 8.6 thou/uL (4.8-10.8)
[2018-04-28] MEDS: HumaLOG 300 UNITS/3 ML VIAL SC PRN ×4 (07:59→16:46)
[2018-04-28] MEDS ORDERED: Carvedilol 25 MG TAB PO SCH (09:00)
[2018-04-28] MEDS ORDERED: Amlodipine 10 MG TAB PO SCH (09:00)
[2018-04-28] MEDS ORDERED: Folic Acid/Vit B Comp W-C PO SCH (09:00)
[2018-04-28] MEDS ORDERED: Insulin NPH/Reg Insulin Hm 300 UNITS/3 ML VIAL SC SCH ×2 (10:15→21:00)
[2018-04-28] MEDS: Heparin 5,000 UNITS/ML VIAL SC SCH ×2 (11:34→16:47)
[2018-04-28] MEDS: hydrALAZINE 25 MG TAB PO SCH ×2 (11:35→16:47)
[2018-04-28] MEDS: cloNIDine 0.3 MG TAB PO SCH (11:35)
[2018-04-28] MEDS: Calcium Acetate 667 MG CAP PO SCH ×2 (11:36→16:47)
[2018-04-28] MEDS: Dicyclomine 20 MG TAB PO SCH (11:36)
[2018-04-28] MEDS: Ferrous Sulfate 325 MG TAB PO SCH (11:37)
[2018-04-28] MEDS: glipiZIDE 10 MG TAB PO SCH (11:37)
[2018-04-28] MEDS: Famotidine 20 MG TAB PO SCH (11:38)
--- NOTE | 2018-04-28 11:46 | PRG ---
DATE OF SERVICE: 04/28/2018 SUBJECTIVE: This is a 57-year-old female, being seen for end-stage renal disease. The patient denies nausea, vomiting, or chest pain. OBJECTIVE: GENERAL: On examination, the patient is awake, alert. VITAL SIGNS: Afebrile, pulse 67, breathing 16, and blood pressure . GENERAL APPEARANCE AND MENTAL STATUS: Fair. HEAD/NECK: Normocephalic. Atraumatic. EYES: EOMI. No deformity. EARS: Clear. No ulcers. NOSE: Intact. No lesions. MOUTH: Clear. No discharge. THROAT: Clear. No exudate. LUNGS: Clear. No crackles. CARDIAC: S1, S2. No rub. ABDOMEN: Benign. Bowel sounds positive. GENITALIA/RECTUM: Verma absent. BACK/EXTREMITIES: Edema 0+. NEUROLOGICAL: Alert and motor intact. SKIN: LYMPHATICS: LABORATORY DATA: Hemoglobin 12.5. Potassium 3.5. ASSESSMENT AND PLAN: 1. Stage 6 chronic kidney disease, stable. 2. Hypertension, stable. 3. Anemia, stable. 4. Hypokalemia, stable. Job ID: [id number]
[2018-04-28] MEDS ORDERED: NPH, Human Insulin Isophane 300 UNIT/3 ML VIAL SC SCH (15:00)
[2018-04-28 15:47] VITALS: BP 104/62; TEMP 97.4
--- NOTE | 2018-04-29 09:48 | DIS ---
DATE OF ADMISSION: 04/26/2018 DATE OF DISCHARGE: 04/28/2018 DISCHARGE DIAGNOSES: Are as of the followin. Hypokalemia. 2. End-stage renal disease. 3. Hypoglycemia. 4. Diabetes, type 2. 5. Hypertension. HOSPITAL COURSE: The patient is a very pleasant 57-year-old female, who initially presented to the hospital on April 26 with a change in mental status. The patient was found to be hypoglycemic. The patient stated that she took her glipizide and took her insulin and did not eat very much. She did not check her blood sugar prior to taking the medications. The patient at this time also was found to be hypokalemic, which was replaced. The patient was seen by Nephrology since she does do peritoneal dialysis. The patient in the ER underwent a CT head, which did not indicate any acute abnormalities. Her insulin initially was discontinued and then, she was put back on her regular dose. Her sugars actually have been in the upper 200s to 300s. The patient has been advised to decrease the dose of her oral medication, which is glipizide to 5 mg b.i.d., and I have instructed her to take her 70/30 of 15 units twice a day instead of 20 units twice a day. I have also prescribed her a glucometer and also strips, so that she can check her sugars before she administers insulin. She is also educated that she needs to be aware of how much insulin she needs to take, if her blood sugars are low. The patient understands. Also, we will be providing home health for this patient. HOME MEDICATIONS: Are as of the followin. Glucometer with strips. 2. Insulin 70/30 of 15 units b.i.d. 3. Lancets. 4. Glipizide 5 mg b.i.d. 5. Iron 325 mg daily. 6. Clonidine 0.3 b.i.d. 7. daily. 8. Calcium acetate 1 p.o. t.i.d. 9. Aspirin 81 mg daily. 10. Carvedilol 25 mg daily. 11. Folic acid 1 p.o. daily. DISPOSITION: Again, she will be discharged home. FOLLOWUP: Follow up with primary care doctor. PHYSICAL EXAMINATION: VITAL SIGNS: Temperature 98.4, pulse 65, respiratory rate 16, oxygen saturation 99% on room air, and blood pressure 128/64. GENERAL: She is awake, alert, and oriented x3. Does not appear in distress. CARDIOVASCULAR: S1 and S2 present. No murmurs, rubs, or gallops. ABDOMEN: Soft, nontender. Bowel sounds are present x2. EXTREMITIES: No edema. Pedal pulses are present x2. Her blood sugar was 411. I have asked the nurse to give her insulin prior to be discharged. Job ID: [id number]
== END 2018-04-28 18:02 | disposition home health service (06) | DRG 638 ==
LOC: ERS 20:47 → 2SE 04-26 00:38
PROVIDERS: ADMIT Hospitalist; ATTEND Hospitalist
PROC: 3E1M39Z Irrigation of Peritoneal Cavity using Dialysate, Percutaneous Approach (ICD-10-PCS; principal; 2018-04-26)
PROC: 3E1M39Z Irrigation of Peritoneal Cavity using Dialysate, Percutaneous Approach (ICD-10-PCS; 2018-04-28)
DX: E11.649 Type 2 diabetes mellitus with hypoglycemia without coma (principal); I13.2 Hypertensive heart and chronic kidney disease with heart failure and with stage 5 chronic kidney disease, or end stage renal disease; N18.6 End stage renal disease; E87.6 Hypokalemia; E11.22 Type 2 diabetes mellitus with diabetic chronic kidney disease; Z99.2 Dependence on renal dialysis; I50.9 Heart failure, unspecified; R74.8 Abnormal levels of other serum enzymes; Z91.19 Patient's noncompliance with other medical treatment and regimen; D64.9 Anemia, unspecified; Z86.73 Personal history of transient ischemic attack (TIA), and cerebral infarction without residual deficits
CPT/HCPCS: 36415; 36416; 51701; 70450; 71045; 80048; 80053; 80307; 82553; 83605; 83735; 84443; 84484; 84681; 85025; 85610; 85730; 87040; 93005; 96365; A4353; J1644; J1815; J3475; J3480; J7050